=== PATIENT | female | born 1990 | race Caucasian/White ===

== ENCOUNTER 2022-08-27 08:14 | Outpatient (REF) | payer OTHER, SELFPAY ==
[2022-08-27 11:17] LABS: MANUAL DIFF FLAG NO
[2022-08-27 11:40] LABS: Basophils Percent Auto 0.4 % (0-2); Eosinophils Absolute Auto 0.2 X10*3/uL (0.0-0.4); Eosinophils Percent Auto 4.2 % (0-4); Hematocrit 38.4 % (37.0-47.0); Hemoglobin 12.4 g/dl (12.0-16.0); Lymphocytes Absolute Auto 2.1 X10*3/uL (1.2-4.9); Lymphocytes Percent Auto 44.3 % (20-40); Mean Corpuscular HGB Conc 32.3 g/dl (31.0-35.0); Mean Corpuscular Hemoglobin 24.7 pg (27.0-33.0); Mean Corpuscular Volume 76.5 fL (80.0-98.0); Mean Platelet Volume 9.9 fL (9.4-12.3); Monocytes Absolute Auto 0.6 X10*3/uL (0.1-1.2); Monocytes Percent Auto 11.5 % (2-11); Neutrophils Absolute Auto 1.9 x10*3/uL (2.0-8.3); Neutrophils Percent Auto 39.6 % (45-73); Platelet Count 187 X10*3/uL (160-400); Red Blood Count 5.02 X10*6/uL (4.20-5.50); Red Cell Distribution Width 14.9 % (11.0-16.0); White Blood Count 4.8 X10*3/uL (4.8-10.8)
[2022-08-27 11:58] LABS: Alanine Aminotransferase 24 U/L (0-31); Albumin Level 3.8 g/dL (3.5-5.0); Alkaline Phosphatase 78 U/L (39-117); Anion Gap 11 (12-20); Aspartate Amino Transferase 24 U/L (5-31); Bilirubin Total 0.9 mg/dL (0.0-1.0); Blood Urea Nitrogen 10 mg/dL (9-16); Calcium 9.5 mg/dL (8.4-10.2); Carbon Dioxide 28 mmol/L (22-29); Chloride 105 mmol/L (96-108); Cholesterol 140 mg/dL; Estimated Glomerular Filt Rate > 60; Glucose Random 95 mg/dL (60-115); HDL Cholesterol 53 mg/dL; Iron 64 mcg/dL (30-160); LDL Cholesterol Calculated 76 mg/dl; Percent Iron Saturation 20 % (15-50); Potassium 4.3 mmol/L (3.3-5.1); Sodium 140 mmol/L (135-145); Total Iron Binding Capacity 321 mcg/dL (228-428); Total Protein 6.5 g/dL (6.5-8.0); Triglycerides 56 mg/dL; Unsaturated Iron Binding 257 ug/dL
[2022-08-27 12:18] LABS: TSH reflex Free T4 < 0.01 uIU/mL (0.32-4.0)
[2022-08-27 13:58] LABS: Free T4 (Free Thyroxine) 2.33 ng/dL (0.71-1.85)
== END 2022-08-27 08:15 | disposition home or self-care (01) ==
LOC: HO.HMGCLDS 08:14
PROVIDERS: PCP Internal Medicine; Visit Provider Internal Medicine
DX: Z00.00 Encounter for general adult medical examination without abnormal findings (principal); R00.2 Palpitations
CPT/HCPCS: 36415; 80053; 80061; 83540; 84439; 84443; 85025

== ENCOUNTER 2022-09-11 08:06 | Outpatient (REF) | payer OTHER, SELFPAY ==
[2022-09-11 11:50] LABS: Free T4 (Free Thyroxine) 3.54 ng/dL (0.71-1.85)
[2022-09-13 05:28] LABS: Triiodothyronine T3 Free >20.0 pg/mL (2.3-4.2)
[2022-09-13 13:38] LABS: Thyroid Peroxidase Antibodies >900 IU/mL (<9)
[2022-09-17 21:44] LABS: Thyrotropin Receptor Antibody 6.06 IU/L (<=2.00)
== END 2022-09-11 08:07 | disposition home or self-care (01) ==
LOC: HO.HMGCLDS 08:06
PROVIDERS: PCP Internal Medicine; Visit Provider Internal Medicine
DX: E05.90 Thyrotoxicosis, unspecified without thyrotoxic crisis or storm (principal)
CPT/HCPCS: 36415; 83520; 84439; 84481; 86376

== ENCOUNTER 2022-09-14 10:19 | Outpatient (REF) | payer OTHER, SELFPAY ==
--- NOTE | ~2022-09-14 | US_ITS ---
EXAMINATION: US THYROID CLINICAL INFORMATION: Thyrotoxicosis without crisis COMPARISON: None available. TECHNIQUE: Linear transducer grayscale and color Doppler examination with attention to the region of the thyroid. FINDINGS: SIZE: Measurements of the thyroid lobes and nodules are given in sagittal, anteroposterior and transverse dimensions respectively. Right Thyroid Lobe: 6.5 x 2.4 x 2.6 cm, volume 21.2 mL. Parenchyma: The gland echotexture is heterogeneous. Thyroid vascularity is hypervascular. Left Thyroid Lobe: 6.1 x 1.9 x 2.3 cm, volume 14.0 mL. Parenchyma: The gland echotexture is heterogeneous. Thyroid vascularity is hypervascular. Isthmus: 0.7 cm in maximum AP dimension. Estimated total number of nodules greater than or equal to 1 cm: 0. NODES: No lymphadenopathy is seen in the tissue surrounding the thyroid gland. US/US thyroid IMPRESSION: Enlarged hypervascular and heterogeneous thyroid gland consistent with goiter. No focal nodules seen. ACR TI-RADS RECOMMENDATION REFERENCE: Ultrasound-guided fine-needle aspiration, followup ultrasound, no further follow up. * TR1 (0 point) and TR2 (2 points): No FNA or follow up. * TR3 (3 points): FNA if more than or equal to 2.5 cm in maximum dimension, followup ultrasound in 1, 3 and 5 years if 1.5 to 2.4 cm in maximum dimension. * TR4 (4-6 points): FNA if more than or equal to 1.5 cm in maximum dimension, followup ultrasound in 1, 2, 3 and 5 years if 1 to 1.4 cm in maximum dimension. * TR5 (more than or equal to 7 points): FNA if more than or equal to 1 cm in maximum dimension, followup ultrasound every year for 5 years if 0.5 to 0.9 cm in maximum dimension. * TR3, TR4 or TR5 nodules that are below the size threshold for followup receive no follow up.
== END 2022-09-14 10:20 | disposition home or self-care (01) ==
LOC: HO.HMGCX 10:19
PROVIDERS: PCP Internal Medicine; Visit Provider Internal Medicine
DX: E05.90 Thyrotoxicosis, unspecified without thyrotoxic crisis or storm (principal)
CPT/HCPCS: 76536

== ENCOUNTER 2024-10-17 09:25 | Outpatient (AMB) | payer OTHER, BC, SELFPAY ==
[2024-10-17 09:39] VITALS: BP 118/74; PULSE 91; RESP 18; TEMP 36.7; O2SAT 98; BMI 23.9
--- NOTE | 2024-10-17 09:39 | MHC.PC.OV ---
Vital Signs 10/17/24 09:39 Height 5 ft 4 in Weight 139 lb BMI 23.9 BP 118/74 Blood Pressure Location Lt brachial Position Sitting Respiration 18 Pulse 91 Pulse Source Pulse Oximeter Temp 98.1 F Temp Source Oral Pulse Oximetry (%) 98 Oxygen Delivery Method Room Air Intake Visit Reasons: Annual PE-update pcp Intake Note: Pt is here today for PE. Allergies No Known Allergies Allergy (Verified 10/17/24 09:40) Medication List - Last Reconciled 10/17/24 by Elise Trujillo MD cetirizine (Zyrtec) 10 mg PO DAILY PRN norethindrone (contraceptive) 0.35 mg PO DAILY Tobacco use date assessed: 10/17/24 Dental Screening Dental Screen Date: 10/17/24 Did you have a dental visit in the last 12 months?: Yes Did you have a dental problem in the last 6 months where you did not have access to dental care?: No Was dental information given to patient?: Patient has dentist HPI Annual PE-update pcp HPI Details Pt presents for PE. 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 Patient has not been taking methimazole for 2 years of the most recent TSH level was normal in April. Patient lost about 10 lb in the last 2 months but has been decreasing caloric intake. Patient denies increased sweating or palpitations, change in appetite PFSH Family History Father Leukemia Social History Household Members Other:: , 3 children (under 3 yr), stay at home Housing: House Patient Tobacco Use Status: Never used Tobacco e-Cigarette/Vaping Use: Never Used Second Hand Smoke Exposure: No service: No Current occupational status: employed Cognitive needs: No Hearing needs: No Vision needs: No Questionnaire PHQ-9 Over the last 2 weeks, how often have you been bothered by any of the following problems? 1. Little interest or pleasure in doing things: not at all 2. Feeling down, depressed, or hopeless: not at all 3. Trouble falling or staying asleep, or sleeping too much: several days 4. Feeling tired or having little energy: not at all 5. Poor appetite or overeating: not at all 6. Feeling bad about yourself - or that you are a failure or have let yourself or your family down: not at all 7. Trouble concentrating on things, such as reading the newspaper or watching television: nearly every day 8. Moving or speaking so slowly that other people could have noticed. Or the opposite - being so fidgety or restless that you have been moving around a lot more than usual: not at all 9. Thoughts that you would be better off or of hurting yourself in some way: not at all Total score: 4 Depression Screening Interpretation: Negative Depression Screening Done: Yes 47364 - PHQ-9 Billing: Yes Source: Developed by Drs. Seymour Masterson, Yolanda Hernandez, Thierry Cardenas and colleagues, with an educational yenifer from [employer]. Thrive Questionnaire Date Thrive assessed: 10/17/24 I am a: Patient What is your living situation today?: I have a steady place to live Within the past 12 months, did the food you bought not last and you didn't have the money to get more?: Never true Within the past 12 months, did you worry whether your food would run out before you got money to buy more?: Never true Do you have trouble paying for medicines?: No Do you have trouble getting transportation to medical appointments?: No Do you have trouble paying your heating and electricity bill?: No Do you have trouble taking care of your child, family member or friend?: No Do you have trouble with day-to-day activities such as bathing, preparing meals, shopping, managing finances, etc.?: No Are you currently unemployed and looking for a job?: No Are you interested in more education?: No Please select the resources that you would like help with: None THRIVE Score: 0 INES-7 AMB Questionnaire INES-7 Date INES - 7 assessed: 10/17/24 Feeling nervous, anxious, or on edge: 0 = Not at all Not being able to stop or control worryin = Not at all Worrying too much about different things: 0 = Not at all Trouble relaxin = Not at all Being so restless that it is hard to sit still: 0 = Not at all Becoming easily annoyed or irritable: 0 = Not at all Feeling afraid as if something awful might happen: 0 = Not at all Total INES-7 score (0-4 normal; 5-9 mild; 10-14 moderate; 15-21 severe): 0 Source: Developed by Drs. Seymour Masterson, Yolanda Hernandez, Thierry Cardenas and colleagues, with an educational yenfier from [employer]. INES-7 Assessment Billing INES-7 Assessment Tool: INES-7 Assessment 98854 Review of Systems Const All systems reviewed & are unremarkable except as noted in HPI and below Reports no additional complaints Eyes Reports no additional complaints ENT Reports no additional complaints Card Reports no additional complaints Resp Reports no additional complaints GI Reports no additional complaints Reports no additional complaints Musc Reports no additional complaints Physical exam (Primary Care) Vital Signs: Last Vital Signs Temp 98.1 F 10/17/24 09:39 Pulse 91 10/17/24 09:39 Resp 18 10/17/24 09:39 BP 118/74 10/17/24 09:39 Pulse Ox 98 10/17/24 09:39 Oxygen Delivery Method Room Air 10/17/24 09:39 BMI result Body Mass Index 23.9 Tobacco/Smoking Status: Tobacco use Status Tobacco use date assessed 10/17/24 10/17/24 09:42 Patient Tobacco Use Status Never used Tobacco 10/17/24 09:42 e-Cigarette/Vaping Use Never Used 10/17/24 09:42 PHQ-9: PHQ-9 Score PHQ-9: Total score 4 10/17/24 09:42 Depression Screening Interpretation: Negative Thrive Assessment: Date of Thrive Assessment Date Thrive assessed 10/17/24 10/17/24 09:42 Const General: no acute distress HENMT Head: Yes normal to inspection Ears: hearing grossly normal bilaterally Face and sinus: Yes normal facial exam Mouth: Normal oral and palatal mucosa present Throat: Yes posterior oropharynx normal Eyes General: appearance normal, both eyes and all related structures Neck Neck: Yes no lymphadenopathy and Yes supple Resp Effort & Inspection: normal respiratory effort Auscultation: clear to auscultation bilaterally Cardio Rhythm: regular rhythm Heart sounds: S1 normal heart sound present and S2 normal heart sound present GI Inspection: Yes normal to inspection Palpation (GI): Soft to palpation Percussion: Yes normal to percussion Auscultation: normal bowel sounds Coding Level of Care Code New Pt Prev Care 18-39yr(45005 Diagnoses Hyperthyroidism E05.90 Normal pelvic exam Z01.419 Venous insufficiency of both lower extremities I87.2 Annual physical exam Z00.00 Additional Codes INES-7 Assessment Billing - INES-7 Assessment Tool: INES-7 Assessment 53210 ([id number]) PHQ-9 - 18444 - PHQ-9 Billing: Yes ([id number]) Assessment & Plan Assessment & Plan (1) Hyperthyroidism: Comment: used to take Methimazole [id number], established with endocrinology in [place] Code(s): E05.90 - Thyrotoxicosis, unspecified without thyrotoxic crisis or storm Category: Medical Plan: Check TSH and free T3, T4 (2) Normal pelvic exam: Comment: community reinvestment act officer in [facility] Code(s): Z01.419 - Encounter for gynecological examination (general) (routine) without abnormal findings Category: Medical Plan: Follow-up with community reinvestment act officer (3) Venous insufficiency of both lower extremities: Comment: s/p sclerotherapy, L leg 2023 Code(s): I87.2 - Venous insufficiency (chronic) (peripheral) Category: Medical Plan: Follow-up with vascular surgery (4) Annual physical exam: Code(s): Z00.00 - Encounter for general adult medical examination without abnormal findings Category: Medical Plan: Well-balanced diet regular physical activity discussed with the patient Orders: Orders Comprehensive [place]. Panel Fast Today I87.2 - Venous insufficiency (chronic) (peripheral) Complete Blood Count Auto Diff Today I87.2 - Venous insufficiency (chronic) (peripheral) TSH reflex Free T4 Today I87.2 - Venous insufficiency (chronic) (peripheral) Triiodothyronine T3 Free Today I87.2 - Venous insufficiency (chronic) (peripheral) Lipid Panel Today I87.2 - Venous insufficiency (chronic) (peripheral) UA w Microscopic Today I87.2 - Venous insufficiency (chronic) (peripheral)
--- OUTSIDE RECORDS SUMMARY | 2024-10-17 09:49 | XMS_ITS | Clinical Summary ---
Author Organization [facility] Address [address] [place] [phone] Phone Care Team Providers Care Union Carpenter Name Role Phone Elise Trujillo MD Primary Care Provider [phone] Family History Medical History Relation Name Comments Other cancer Father leukemia, at ag e age 26 Hypertension Mother on meds Diabetes Paternal Grandmother Breast cancer Neg Hx Cancer of Small Bowel Neg Hx Colon cancer Neg Hx Kidney cancer Neg Hx Ovarian cancer Neg Hx Pancreatic cancer Neg Hx Prostate cancer Neg Hx Uterine cancer Neg Hx Relation Name Status Comments Brother Alive Father (Age 46) leukemia Maternal Grandfather Maternal Grandmother Alive Mother Alive Paternal Grandfather Alive Paternal Grandmother Social History Tobacco Use Types Packs/Day Years Used Date Smoking Tobacco: Former Smokeless Tobacco: Never Alcohol Use Standard Drinks/Week Comments Not Currently 0 (1 standard drink = 0.6 oz pur e alcohol) Comments Unknown Sex and Gender Information Value Date Recorded Sex Assigned at Not on file Legal Sex Female 11:29 AM EST Gender Identity Not on file Sexual Orientation Not on file Obstetrics History Last Filed Vital Signs Vital Sign Reading Time Taken Comments Blood Pressure 110/76 09/23/2023 1:36 PM EDT Pulse 76 09/23/2023 1:36 PM EDT Temperature - - Respiratory Rate - - Oxygen Saturation - - Inhaled Oxygen Concentration - - Weight 68 kg (150 lb) 09/23/2023 1:36 PM EDT Height 162.6 cm (5' 4 ) 09/23/2023 1:36 PM EDT Body Mass Index 25.75 09/23/2023 1:36 PM EDT Plan of Treatment Health Maintenance Due Date Last Done Comments DTaP,Tdap,and Td Vaccines (1 - Tdap) 2007 Hepatitis B Vaccines (1 of 3 - 19+ 3-dose series) 2007 Depression Screening 03/02/2022 HIV Screening 03/02/2022 Hepatitis C Screening 03/02/2022 Social Influencers of Health Screening 03/02/2022 Cervical Cancer Screening: P ap Smear 05/14/2023 05/14/2020, 09/29/2017 COVID-19 Vaccine (1 - 2023-2 5 season) 2023 Influenza Vaccine (#1) 2024 HIB Vaccines Aged Out No longer eligi ble based on patient's age to complete this topic HPV Vaccines Aged Out No longer eligi ble based on patient's age to complete this topic Hepatitis A Vaccines Aged Out No long er eligible based on patient's age to complete this topic IPV Vaccines Aged Out No longer eligi ble based on patient's age to complete this topic MMR Vaccines Aged Out No longer eligi ble based on patient's age to complete this topic Meningococcal ACWY Vaccine Aged Out N o longer eligible based on patient's age to complete this topic Meningococcal B Vaccine Aged Out No l onger eligible based on patient's age to complete this topic Pneumococcal Vaccine: Pediatrics (0 to 5 Years) and At-Risk Patients (6 to 49 Years) Aged Out No longer eligible b ased on patient's age to complete this topic RSV Immunization Patients Under 20 months Aged Out No longer eligible b ased on patient's age to complete this topic Varicella Vaccines Aged Out No longer eligible based on patient's age to complete this topic Procedures Procedure Name Priority Date/Time Associated Diagnosis Comments PAP SMEAR Routine 05/14/2020 from Last 3 Months or Most Recently Relevant to Health Maintenance Results * Pap smear (05/14/2020) 05/14/2020 Narrative HISTORICAL TESTING LAB RESULTING AGENCY - 05/22/2020 9:55 AM EST [id number] THINPREP PAP, IMAGED: NEGATIVE FOR SQUAMOUS INTRAEPITHELIAL LESION AND MALIGNANCY . GARY QUIROS(ASCP) (CASE ELECTRONICALLY SIGNED 05 22 2020) RESULT OF APTIMA HIGH RISK HPV ASSAY: HIGH RISK HPV: NEGATIVE (SEROTYPES 16,18,31,33,35,39,45,51,52,56,58,59,66,68) COMPLETED ON 2020-05-19 ADEQUACY: SATISFACTORY ENDOCERVICAL/TRANSFORMATION ZONE COMPONENT PRESENT. SOURCE: THINPREP PAP HPV ANY DX: REFLEX 16 AND 18, CERVICAL, IMAGED CLINICAL INFORMATION: HPV ANY DIAGNOSIS. PAP HX NEG, LMP 07/02/19 [Z12.4] us Mary Ellen Perales [facility] LAB CYTOLOGY ORDERABLES Final Result HISTORICAL TESTING LAB RESULTING AGENCY from Last 3 Months or Most Recently Relevant to Health Maintenance Care Teams Union Carpenter Relationship Specialty Start Date End Date Elise Trujillo MD PCP - General 09/08/22
== END 2024-10-17 10:52 | disposition home or self-care (01) ==
PROVIDERS: PCP Internal Medicine; Visit Provider Internal Medicine
DX: E05.90 Thyrotoxicosis, unspecified without thyrotoxic crisis or storm (principal); Z01.419 Encounter for gynecological examination (general) (routine) without abnormal findings; I87.2 Venous insufficiency (chronic) (peripheral); Z00.00 Encounter for general adult medical examination without abnormal findings

== ENCOUNTER 2024-10-17 09:25 | Outpatient (REF) | payer OTHER, BC, SELFPAY ==
[2024-10-17 13:43] LABS: MANUAL DIFF FLAG NO
[2024-10-17 13:47] LABS: Hematocrit 30.5 % (37.0-47.0); Hemoglobin 8.8 g/dl (12.0-16.0); Imm Gran Abs Auto 0.01 X10*3/uL (0.00-0.03); Imm Gran Pct Auto 0.3 % (0.0-0.4); Lymphocytes Absolute Auto 1.4 X10*3/uL (1.2-4.9); Mean Corpuscular HGB Conc 28.9 g/dl (31.0-35.0); Mean Corpuscular Hemoglobin 18.7 pg (27.0-33.0); NRBC Abs Auto 0.000 X10*3/uL (0.0-0.012); NRBC Pct Auto 0.0 /100WBC (0.0-0.2); Platelet Count 240 X10*3/uL (160-400); Red Blood Count 4.71 X10*6/uL (4.20-5.50); White Blood Count 4.0 X10*3/uL (4.8-10.8)
[2024-10-17 13:48] LABS: Mean Corpuscular Volume 64.8 fL (80.0-98.0)
[2024-10-17 14:01] LABS: Appearance Urine Clear; Glucose Urine UA Negative (Negative); PH 7.5 (5.0-9.0); Specific Gravity - Urine <= 1.005 (1.005-1.025)
[2024-10-17 14:07] LABS: Alanine Aminotransferase 14 U/L (0-31); Albumin Level 4.4 g/dL (3.5-5.0); Alkaline Phosphatase 41 U/L (39-117); Anion Gap 11 (12-20); Aspartate Amino Transferase 19 U/L (5-31); Blood Urea Nitrogen 9 mg/dL (9-16); Calcium 9.6 mg/dL (8.4-10.2); Carbon Dioxide 26 mmol/L (22-29); Chloride 109 mmol/L (96-108); Cholesterol 140 mg/dL (<200); Estimated Glomerular Filt Rate > 60; HDL Cholesterol 54 mg/dL (>40); Potassium 4.5 mmol/L (3.3-5.1); Sodium 141 mmol/L (135-145); Total Protein 7.5 g/dL (6.5-8.0); Triglycerides 55 mg/dL (<150)
[2024-10-17 15:03] LABS: Free T4 (Free Thyroxine) 1.73 ng/dL (0.71-1.85)
== END 2024-10-17 09:26 | disposition home or self-care (01) ==
LOC: HO.HMGCLDS 09:25
PROVIDERS: PCP Internal Medicine; Visit Provider Internal Medicine
DX: Z00.00 Encounter for general adult medical examination without abnormal findings (principal); E05.90 Thyrotoxicosis, unspecified without thyrotoxic crisis or storm; I87.2 Venous insufficiency (chronic) (peripheral); Z13.30 Encounter for screening examination for mental health and behavioral disorders, unspecified; Z13.31 Encounter for screening for depression
CPT/HCPCS: 36415; 80053; 80061; 81001; 84439; 84443; 84481; 85025; 96127; 99385

== ENCOUNTER 2024-12-07 07:06 | Outpatient (REF) | payer OTHER, BC, SELFPAY ==
--- OUTSIDE RECORDS SUMMARY | 2024-12-07 07:09 | XMS_ITS | Clinical Summary ---
Author Organization [facility] Address [address] [place] [phone] Phone Care Team Providers Care Dowel Setting Machine Operator Name Role Phone Elise Trujillo MD Primary Care Provider [phone] Medications norethindrone (KATTY,ZULEMA,HEAT HER,MICRONOR) 0.35 mg tabletIndications: Encounter for other general counseling and advice on contraception TAKE 1 TABLET BY MOUTH EVERY DAY 84 tablet 3 5 Active Family History Medical History Relation Name Comments [...] of 3 - 19+ 3-dose series) 2007 HIV Screening 03/02/2022 Hepatitis C Screening 03/02/2022 Social Influencers of Health Screening 03/02/2022 Cervical Cancer Screening: P ap Smear 05/14/2023 05/14/2020, 09/29/2017 Depression Screening 04/04/2024 COVID-19 Vaccine ( - 2023-2 5 season) 2024 Influenza Vaccine (#1) 2024 HIB Vaccines Aged [...] RESULTING AGENCY - 05/22/2020 9:55 AM EST [id number] THINPREP PAP, IMAGED: NEGATIVE FOR SQUAMOUS INTRAEPITHELIAL [...] NEG, LMP 07/02/19 [Z12.4] us Mary Ellen [facility] LAB CYTOLOGY ORDERABLES Final Result HISTORICAL TESTING LAB RESULTING AGENCY from Last 3 Months or Most Recently Relevant to Health Maintenance Care Teams Dowel Setting Machine Operator Relationship Specialty Start Date End Date Elise Trujillo MD PCP - General 09/08/22
--- OUTSIDE RECORDS SUMMARY | 2024-12-07 07:09 | XMS_ITS ---
Author Name [facility] Organization Unknown Care Team Organization Name Specialty Phone Email Start Date End Da te [facility] Termed, PROVIDER Primary Care 02/09/202211/02
--- OUTSIDE RECORDS SUMMARY | 2024-12-07 07:09 | XMS_ITS | Clinical Summary ---
Author Organization [facility] Address [address] [place] [id number] Phone Care Team Providers Care Call Out Clerk Name Role Phone Elise Trujillo MD Primary Care Provider [phone] Allergies No known active allergies Medications hydrOXYzine (ATARAX) 10 mg/5 mL syrup daily as needed. 08/20/2022 Active norethindrone (MICRONOR) 0.35 mg tablet 09/09/2022 Active FISH OIL-DHA-EPA ORAL Take by mouth daily. Active methIMAzole (TAPAZOLE) 5 MG tablet Take 1 tablet (5 mg total) by mouth daily. 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 -Continue monitoring for symptoms and seek ophthalmology evaluation if symptoms develop. Assessment & Plan (07/10/2023 2:49 PM EDT): Patient has some stare and lower lid swelling, overall improved symptoms. She was referred to Dr. Juan Shahid but he does not accept patient's insurance. Asked patient to call if worsening symptoms and if so request ophthalmology consultation by physician covered by her insurance. Assessment & Plan (03/09/2023 10:26 AM EST): Patient has slight stare, proptosis and bilateral upper and lower lid swelling. Referral was put in to see Dr. Juan Shahid back in 11/2022 but appointment has not been scheduled. Will give patient a referral and she will schedule the appointment herself and we will send records when her appointment is known. Hyperthyroidism 10/12/2022 Assessment & Plan (10/09/2023 7:12 PM EDT): See below. Assessment & Plan (07/10/2023 2:48 PM EDT): 33-year-old woman with Graves' thyrotoxicosis, fully suppressed TSH with elevated free T4 and elevated TPO and TSH receptor antibody in early September 2022. She was started on 5 mg methimazole daily and propranolol 10 mg twice a day in september. Her symptoms did improve slightly. Her thyroid ultrasound showed diffuse thyromegaly with heterogeneous echotexture and hypervascularity but no nodule. She has no compression symptoms in the thyroid bed. Since her thyroid hormone levels were about 4 times the upper limit of normal after being on methimazole 5 mg daily for about a month her dose was increased to 10 mg a.m. and added 5 mg in p.m. in mid October. She improved clinically and biochemically with normalization of T3 and T4 by mid November 2022. Her propranolol dose was decreased to 10 mg daily in mid November. She started having some eyelid swelling but no other signs of thyroid eye disease (MACKENZIE). Methimazole dose was decreased to 10 mg in a.m. only at the end of November 2022. By early January TSH remained fully suppressed but thyroid hormone levels were low normal and we decreased the methimazole further to 7.5 mg daily. She continued the propranolol 10 mg in the morning. Her methimazole was decreased further to 5 mg daily in 03/2023 and 5 mg every other day in mid 04/2023. Her TSH receptor antibody cleared by 04/2023. Plan to stop methimazole and monitor TFTs. We reviewed symptoms of hypo and hyperthyroidism, patient to call if concerned. Otherwise would repeat TFTs in 4 to 6 weeks. Call if any compression symptoms in the thyroid bed. Assessment & Plan (03/25/2023 10:33 PM EST): 32-year-old woman with Graves' thyrotoxicosis, fully suppressed TSH with elevated free T4 and elevated TPO and TSH receptor antibody in early September 2022. She was started on 5 mg methimazole daily and propranolol 10 mg twice a day in september. Her symptoms did improve slightly. Her thyroid ultrasound showed diffuse thyromegaly with heterogeneous echotexture and hypervascularity but no nodule. She has no compression symptoms in the thyroid bed. Since her thyroid hormone levels were about 4 times the upper limit of normal after being on methimazole 5 mg daily for about a month her dose was increased to 10 mg a.m. and added 5 mg in p.m. in october. She improved clinically and biochemically with normalization of T3 and T4 by november. Her propranolol dose was decreased to 10 mg daily in november. She started having some eyelid swelling but no other signs of thyroid eye disease (MACKENZIE). Methimazole dose was decreased to 10 mg in a.m. only at the end of November. By early January TSH remained fully suppressed but thyroid hormone levels were low normal and we decreased the methimazole further to 7.5 mg daily. She continued the propranolol 10 mg in the morning. She is clinically euthyroid. Will check TFTs today and communicate results through [employer]. Assessment & Plan (11/23/2022 4:19 PM EDT): 32-year-old woman with Graves' thyrotoxicosis, fully suppressed TSH with elevated free T4 and elevated TPO and TSH receptor antibody in early September 2022. She was started on 5 mg methimazole daily and propranolol 10 mg twice a day in september. Her symptoms did improve slightly. Her thyroid ultrasound showed diffuse thyromegaly with heterogeneous echotexture and hypervascularity but no nodule. She has no compression symptoms in the thyroid bed. Since her thyroid hormone levels were about 4 times the upper limit of normal after being on methimazole 5 mg daily for about a month her dose was increased to 10 mg a.m. and added 5 mg in p.m. in october. She is clinically and biochemically improved with normalization of T3 and T4 by november. Her propranolol dose was decreased to 10 mg daily in november. She started having some eyelid swelling but no other signs of MACKENZIE. Plan to decrease methimazole to 10 mg in a.m. only. Continue propranolol 10 mg in the morning. Will repeat TFTs in 4 to 6 weeks. Will communicate through [employer]. Advised to see eye doctor, sent referral to Dr. Juan Shahid who has special interest in thyroid eye disease. Assessment & Plan (10/12/2022 4:51 PM EDT): 32-year-old woman with recent diagnosis of Graves' thyrotoxicosis. Fully suppressed TSH with elevated free T4 and elevated TPO and TSH receptor antibody in early September. She was started on 5 mg methimazole daily and propranolol 10 mg twice a day about a month ago. Her symptoms did improve slightly. Her thyroid ultrasound showed diffuse thyromegaly with heterogeneous echotexture and hypervascularity but no nodule. She has no compression symptoms in the thyroid bed. On exam she is still slightly thyrotoxic. Discussed normal thyroid physiology, meaning of TFTs. Discussed risks of untreated hyperthyroidism and treatment options of hyperthyroidism with risk/benefits including antithyroid medication, radioactive iodine ablation and surgery. Plan to continue methimazole and propranolol. Have labs today and will adjust methimazole dose pending on lab results. Reviewed symptoms of hyper and hypothyroidism, patient to call if concerned. Stop methimazole and call immediately with fever/sore throat/rash. Graves' disease 10/12/2022 Assessment & Plan (04/11/2024 11:38 AM EST): Graves' Disease: Methimazole started in 09/2022 and stopped in 06/2023. Remains in remission with normal TSH and thyroid hormone levels. No symptoms of hyperthyroidism. Slightly asymmetric thyroid with right lobe minimally enlarged, left lobe normal in size. Ultrasound in 09/2022 did not show any distinct nodules. Discussed the possibility of recurrence in her lifetime and the symptoms of both hyper- and hypothyroidism. -Repeat TSH yearly or as clinically indicated -Patient to call if concerned -Discussed typical symptoms of thyroid eye disease, if symptoms develop advised to see Dr. Juan Shahid Assessment & Plan (10/09/2023 7:13 PM EDT): Graves' Disease: Methimazole started in 09/2022 and stopped in 06/2023. Currently in remission with normal TSH and thyroid hormone levels. No symptoms of hyperthyroidism. Discussed the possibility of recurrence in her lifetime and the symptoms of both hyper- and hypothyroidism. -Continue monitoring thyroid function with blood work every 6 months for the next 2 years. -If symptoms of hyper- or hypothyroidism develop, perform blood work sooner. Assessment & Plan (07/10/2023 2:48 PM EDT): See above Assessment & Plan (11/23/2022 4:19 PM EDT): See above Assessment & Plan (10/12/2022 4:51 PM EDT): See above. No extrathyroidal manifestation. Encounters Date Type Department Care Team Description 11/27/2024 Orders Only [facility] [address] [place] [address] [place] [id number] Lucina Fox MD Graves' disease (Primary Dx) 11/26/2024 Telephone [facility] [address] [place] [address] [place] [id number] Sarah Gallo MD Results 11/23/2024 11:06 AM EDT - 11/23/2024 11:59 PM EDT Hospital Encounter [facility] [address] [place] [address] [place] [phone] Sarah Gallo MD Discharge Disposition: Home or Self Care 11/23/2024 Orders Only [facility] [address] [place] [address] [place] [address] Sarah Gallo MD Hyperthyroidism (Primary Dx) 11/05/2024 Orders Only [facility] [address] [place] [id number] Sarah Gallo MD Graves' disease (Primary Dx) from Last 3 Months Social History Tobacco Use Types Packs/Day Years Used Date Smoking Tobacco: Never Smokeless Tobacco: Never Tobacco Cessation:Counseling Given: Not Answered Education Answer Date Recorded Are you interested in more education? Not on jessica e 09/17/2022 Are you concerned about learning? Not on file 09/17/2022 No 09/17/2022 No 09/17/2022 Digital Access Answer Date Recorded No 09/17/2022 No 09/17/2022 Reliable internet access at home? Not on file 09/17/2022 Device with a working camera? Not on file Comments Unknown Sex and Gender Information Value Date Recorded Sex Assigned at Not on file Legal Sex Female 12:56 PM EDT Gender Identity Not on file Sexual Orientation Not on file Last Filed Vital Signs Vital Sign Reading Time Taken Comments Blood Pressure 110/60 04/11/2024 9:15 AM EST Pulse 80 04/11/2024 9:15 AM EST Temperature 36.6 C (97.8 F) 03/09/2023 9:50 AM EST Respiratory Rate - - Oxygen Saturation 96% 04/11/2024 9:15 AM EST Inhaled Oxygen Concentration - - Weight 68.5 kg (151 lb) 04/11/2024 9:15 AM EST Height 163.8 cm (5' 4.49 ) 04/11/2024 9:15 AM ES T Body Mass Index 25.53 04/11/2024 9:15 AM EST Plan of Treatment Upcoming Encounters Date Type Department Care Team (Late st Contact Info) Description 01/31/2025 2:00 PM EDT Office Visit [facility] [address] [place] [address] [place] [address] Lucina Fox MD [address] [place] [phone] 04/15/2025 8:40 AM EST Office Visit [facility] [address] [place] [address] Lucina Fox MD [address] [place] [id number] Health Maintenance Due Date Last Done Comments Adult Td,Tdap Booster 1988 DEPRESSION SCREENING 2000 HEPATITIS C SCREENING 2006 HIV ONE-TIME SCREENING (18-6 5 YEARS) 2006 SCREENING FOR DIABETES 2023 PAP SMEAR 05/14/2023 05/14/2020 COVID-19 VACCINE (2023-2 5 season) 2023 INFLUENZA VACCINE (#1) 2024 SMOKING STATUS SCREENING (On ce After 26 Yrs) Completed 09/28/2023 HEPATITIS A VACCINES Aged Out No long er eligible based on patient's age to complete this topic HIB VACCINES Aged Out No longer eligi ble based on patient's age to complete this topic MENINGOCOCCAL VACCINES (ACWY) Aged Out No longer eligible based on patient's age to complete this topic MENINGOCOCCAL VACCINES (B) Aged Out N o longer eligible based on patient's age to complete this topic PNEUMOCOCCAL VACCINES (0-49 years) Aged Out No longer eligible based on patient's age to complete this topic Medical Devices Not on file Procedures Procedure Name Priority Date/Time Associated Diagnosis Comments ALANINE AMINOTRANSFERASE (ALT) Routine 11/23/2024 11:07 AM EDT ASPARTATE AMINOTRANSFERASE (AST) Routine 11/23/2024 11:07 AM EDT FREE T3 Routine 11/23/2024 11:07 AM EDT FREE T4 Routine 11/23/2024 11:07 AM EDT TSH WITH REFLEX Routine 11/23/2024 11:07 AM EDT Graves' disease from Last 3 Months Results * (ABNORMAL) TSH with reflex (11/23/2024 11:07 AM EDT) TSH <0.01(L) 0.27 - 4.20 uIU/mL [facility] Blood 11/23/2024 11:0 7 AM EDT 11/23/2024 11:10 AM EDT us Sarah Gallo MD LAB BLOOD ORDERABLES F inal Result [address] [address] * (ABNORMAL) Free T3 (11/23/2024 11:07 AM EDT) FREE T3 5.5(H) 2.0 - 4.4 pg/mL [facility] 11/23/2024 11:0 7 AM EDT 11/23/2024 11:10 AM EDT us Sarah Gallo MD LAB BLOOD ORDERABLES F inal Result Performing Organization Address [facility] Co de Phone Number [address] [phone] * Alanine aminotransferase (ALT) (11/23/2024 11:07 AM EDT) ALT 11 0 - 40 U/L [facility] 11/23/2024 11:0 7 AM EDT 11/23/2024 11:10 AM EDT us Sarah Gallo MD LAB BLOOD ORDERABLES F inal Result Performing Organization Address [facility] Co de Phone Number [address] [phone] * Aspartate aminotransferase (AST) (11/23/2024 11:07 AM EDT) AST 18 0 - 37 U/L [facility] 11/23/2024 11:0 7 AM EDT 11/23/2024 11:10 AM EDT us Sarah Gallo MD LAB BLOOD ORDERABLES F inal Result Performing Organization Address [facility] Co de Phone Number [address] [address] * (ABNORMAL) Free T4 (11/23/2024 11:07 AM EDT) FREE T4 1.9(H) 0.9 - 1.7 ng/dL [facility] 11/23/2024 11:0 7 AM EDT 11/23/2024 11:10 AM EDT us Sarah Gallo MD LAB BLOOD ORDERABLES F inal Result [address] [address] from Last 3 Months Insurance [employer] NON NSPG PCP [employer] NON NSPG PCP [employer] CONNE[employer]ARE [employer] NON NSPG PCP [employer] [place] NON [place]SPG PCP S[employer] CONNE[facility]ARE [facility] NON NSPG PCP S[employer] [place] NON NSPG PCP [employer] Care Teams Call Out Clerk Relationship Specialty Start Date End Date Elise Trujillo MD [address] [facility] [place] [address] PCP - General Internal Medicine 09/14/22 Additional Source Comments The information contained in this document represents components of the legal health record. It is not the complete legal health record.[facility]
[2024-12-07 10:38] LABS: MANUAL DIFF FLAG NO
[2024-12-07 10:52] LABS: Hematocrit 36.1 % (37.0-47.0); Hemoglobin 11.0 g/dl (12.0-16.0); Imm Gran Abs Auto 0.01 X10*3/uL (0.00-0.03); Imm Gran Pct Auto 0.2 % (0.0-0.4); Lymphocytes Absolute Auto 1.5 X10*3/uL (1.2-4.9); Mean Corpuscular HGB Conc 30.5 g/dl (31.0-35.0); Mean Corpuscular Hemoglobin 21.8 pg (27.0-33.0); Mean Corpuscular Volume 71.5 fL (80.0-98.0); NRBC Abs Auto 0.000 X10*3/uL (0.0-0.012); NRBC Pct Auto 0.0 /100WBC (0.0-0.2); Platelet Count 269 X10*3/uL (160-400); Red Blood Count 5.05 X10*6/uL (4.20-5.50); White Blood Count 4.9 X10*3/uL (4.8-10.8)
[2024-12-07 11:33] LABS: Iron 39 mcg/dL (30-160); Percent Iron Saturation 11 % (15-50); Total Iron Binding Capacity 340 mcg/dL (228-428); Unsaturated Iron Binding 301 ug/dL
[2024-12-07 11:40] LABS: Free T4 (Free Thyroxine) 1.29 ng/dL (0.71-1.85)
[2024-12-07 11:46] LABS: Folate 9.9 ng/mL (> or = 4.0); Vitamin B12 677 pg/mL (200-900)
== END 2024-12-07 07:07 | disposition home or self-care (01) ==
LOC: HO.HMGCLDS 07:06
PROVIDERS: PCP Internal Medicine; Visit Provider Internal Medicine
DX: E05.90 Thyrotoxicosis, unspecified without thyrotoxic crisis or storm (principal); D64.9 Anemia, unspecified
CPT/HCPCS: 36415; 82607; 82746; 83540; 84439; 84481; 85025